=== PATIENT | male | born 1965 | race African-American/Black ===

== ENCOUNTER → 2020-12-10 15:27 | Outpatient (CLI) | payer MEDICARE, BC, SELFPAY ==
--- NOTE | ~2020-12-10 | US_ITS ---
EXAMINATION: US thyroid DATE: 12/10/2020 15:52 INDICATION: Enlarged thyroid. Localized swelling in the neck. TECHNIQUE: Multiple ultrasound images of the thyroid were obtained. COMPARISON: None. FINDINGS: The right thyroid lobe measures 5.8 x 2.5 x 2.3 cm. The left thyroid lobe measures 6.8 x 3.0 x 2.8 c m. There are multiple solid hypoechoic nodules with smooth margins in both the left and right thyroi d lobes. The largest at the inferior left thyroid lobe is taller than wide (TI-RADS 5, highly suspici ous , FNA if >=1.0 cm, annual followup is >0.5 cm) measuring 2.9 cm in maximal diameter. There is a s econd TI RADS 5 solid than wide 1.9 cm nodule in the right thyroid. The remainder are wider than tall (TI-RADS 4, moderately suspicious , FNA if >=1.5 cm, annual followup is >=1 cm) measuring 2.8 cm th e left thyroid lobe, 1.5 cm the isthmus and 1.4 cm and 1.2 cm in the right thyroid lobe. IMPRESSION: 1. Multinodular goiter. Would recommend ultrasound-guided biopsy of the 2 taller than wide TI-RADS 5 nodules which measure 2.9 cm and the left thyroid lobe and 1.9 cm the right thyroid lobe. Reviewed, dictated and finalized at location A. IMPRESSION: 1. Multinodular goiter. Would recommend ultrasound-guided biopsy of the 2 talle r than wide TI-RADS 5 nodules which measure 2.9 cm and the left thyroid lobe an d 1.9 cm the right thyroid lobe.
== END ==
PROVIDERS: PCP Physician Assistant; Visit Provider Physician Assistant
DX: E04.2 Nontoxic multinodular goiter (principal)
CPT/HCPCS: 76536

== ENCOUNTER 2021-01-04 13:36 | Outpatient (CLI) | payer MEDICARE, BC, SELFPAY ==
--- NOTE | ~2021-01-04 | US_ITS ---
EXAMINATION: 1. US FNA additional 2. US FNA w image guidance DATE: 01/04/2021 14:48 INDICATION: Nontoxic multinodular goiter. TECHNIQUE: The procedure and its benefits and risks were discussed with the patient. Risks specifically discusse d included bleeding. The patient verbalized understanding of the risks and agreed to proceed. The nec k was prepped and draped in the usual sterile manner. 1% lidocaine was used for local anesthesia. 5 passes were made with a 25G needle into the lesion in right thyroid lobe under ultrasound guidance. 5 passes were made with a 25-gauge needle into the lesion in left thyroid lobe. There were no immedia te complications. The patient understood to call the ordering physician for results after a week and a half and verbalized that understanding. FINDINGS: Grayscale ultrasound images demonstrate needles advanced into a 1.9 cm nodule in right thyroid lobe f or biopsy. Recent ultrasound images demonstrate needles advanced into a 2.9 cm nodule in left thyroid lobe. IMPRESSION: 1. Ultrasound-guided fine needle aspiration of a right thyroid nodule. 2. Ultrasound-guided fine-needle aspiration of a left thyroid nodule. Reviewed, dictated and finalized at location A. IMPRESSION: 1. Ultrasound-guided fine needle aspiration of a right thyroid nodule. 2. Ultrasound-guided fine-needle aspiration of a left thyroid nodule.
== END 2021-01-04 13:37 | disposition home or self-care (01) ==
PROVIDERS: PCP Physician Assistant; Visit Provider Otolaryngology
DX: E04.2 Nontoxic multinodular goiter (principal)
CPT/HCPCS: 10005; 10006; 88173; 88305

== ENCOUNTER 2022-08-14 02:32 | Day surgery (SDC) | payer MEDICARE, BC, SELFPAY ==
[2022-08-02 12:07] VITALS: BMI 28.0
[2022-08-14 07:13] VITALS: BMI 27.7
[2022-08-14 07:15] VITALS: BP 126/84; PULSE 64; RESP 16; TEMP 35.9; O2SAT 99
[2022-08-14] MEDS: LACTATED RINGERS 1,000 ML 150 ML IV CONT (07:34)
[2022-08-14 07:37] LABS: Glucose Point of Care 123 mg/dl (65-105)
--- NOTE | 2022-08-14 08:00 | P.HP_ITS ---
H&P: HPI History of Present Illness Date/Time: 08/14/22 08:00 Chief Complaint: Neoplasia screening. Narrative: This is a 57-year-old male patient presents for screening colonoscopy. Patient's current weight appetite and bowel movements are normal. Patient denies abdominal pain. He has had no bleeding. Family history is noncontributory. Previous exam 5 years ago was unremarkable. Review of Systems Review of Systems: Review of systems noncontributory. [facility] Past Medical History Medical History BMI 28.0-28.9,adult Diabetes Hemoglobin A1c less than 7.0% 6.8 per pt, drawn approx 03/28/2020 Family History Family History Mother Family history of diabetes mellitus in first degree relative Heart disease Kidney disease Social History Social History Smoking status: Never smoker Alcohol intake: never Alcohol use details: occasional Living arrangements: with family Spiritual care concerns: No Meds Home Medications and Allergies Home Medications Medication Instructions Recorded Confirmed Type empagliflozin 10 mg-linagliptin 5 1 tablet PO DAILY 04/07/20 08/14/22 History mg tablet (Glyxambi) Allergies Allergy/AdvReac Type Severity Reaction Status Date / Time acetaminophen Allergy Intermediate Hives Verified 08/14/22 07:12 Penicillins Allergy Unknown Unknown Verified 08/14/22 07:12 Vital Signs Vital Signs - 24 hr 08/14/22 07:15 Temperature 96.7 F L Pulse Rate 64 Respiratory Rate 16 Blood Pressure 126/84 Pulse Oximetry 99 Oxygen Delivery Room Air Exam Narrative: Physical exam reveals patient to be alert. Vital signs stable. HEENT exam is unremarkable. Patient is anicteric. Lungs are clear to auscultation and percussion. Heart is without murmur or extra sounds. Abdomen bowel sounds are present soft nontender with no organomegaly. Digital external rectal exam is normal. Assessment and Plan Assessment and plan (1) Encounter for screening colonoscopy: Code(s): Z12.11 - Encounter for screening for malignant neoplasm of colon Status: Acute Assessment and Plan: Patient presents today for screening colonoscopy. He appears to be at average risk for colon polyps. Further recommendations may be given after endoscopy.
--- NOTE | 2022-08-14 08:07 | WPDANESEPPF ---
Anes - Initial Pre Proc Eval Procedure: Operation Date: 08/14/22 08:30 Proposed Procedures p Screening Colonoscopy - Ruddy Hercules MD Date/Time: 08/14/22 08:07 Surgeon: Ruddy Hercules MD Pre Op Diagnosis: Neoplasm Screening Patient Data Age: 57 Gender: M Height: 1.83 m Weight: 92.7 kg Last Vital Signs Temp 96.7 F L 08/14/22 07:15 Pulse 64 08/14/22 07:15 Resp 16 08/14/22 07:15 BP 126/84 08/14/22 07:15 Pulse Ox 99 08/14/22 07:15 O2 Del Method Room Air 08/14/22 07:15 Allergies Allergy/AdvReac Type Severity Reaction Status Date / Time acetaminophen Allergy Intermediate Hives Verified 08/14/22 07:12 Penicillins Allergy Unknown Unknown Verified 08/14/22 07:12 Home Medications Medication Instructions Recorded Confirmed Type empagliflozin 10 mg-linagliptin 5 1 tablet PO DAILY 04/07/20 08/14/22 History mg tablet (Glyxambi) Laboratory Tests 08/14/22 07:30 POC Capillary Glucose 123 mg/dl H mg/dl (65-105) Patient hx anesthesia problems: none Family hx anesthesia problems: none Results Review: All pre-operative results and documents have been reviewed as part of the pre-operative evaluation. [facility] Past Medical History Medical History BMI 28.0-28.9,adult Diabetes Hemoglobin A1c less than 7.0% 6.8 per pt, drawn approx 03/28/2020 Family History Family History Mother Family history of diabetes mellitus in first degree relative Heart disease Kidney disease Social History Social History Smoking status: Never smoker Alcohol intake: never Alcohol use details: occasional Living arrangements: with family Spiritual care concerns: No Anes - Eval Final PreProcedure Day of Procedure 08/14/22 08:07 Patient weight: normal Heart: regular rate and rhythm Lungs: clear to auscultation Airway: Mallampati scale class II Neurological: alert and oriented Last oral intake: >/= 8 hours ASA classification: II Emergent: no Anesthetic plan: proceed Anesthesia type and monitoring: general GIVS and standard monitoring Results Review: All pre-operative results and documents have been reviewed as part of the pre-operative evaluation. Informed Consent: The patient's anesthetic plan and its attendant risks and benefits were discussed with the patient/family/POA. Questions were solicited and answers provided to the satisfaction of the patient/family/POA.
[2022-08-14 08:45] VITALS: BP 105/71; PULSE 77; RESP 29; O2SAT 99
[2022-08-14 08:55] VITALS: BP 105/73; PULSE 66; RESP 18; O2SAT 99
[2022-08-14 09:05] VITALS: BP 114/72; PULSE 69; RESP 18; O2SAT 100
== END 2022-08-14 09:18 | disposition home or self-care (01) ==
PROVIDERS: PCP Physician Assistant; Visit Provider Internal Medicine Gastroenterology
PROC: 0DJD8ZZ Inspection of Lower Intestinal Tract, Via Natural or Artificial Opening Endoscopic (ICD-10-PCS; CPT 45378; principal; 2022-08-14 08:30)
DX: Z12.11 Encounter for screening for malignant neoplasm of colon (principal); K64.8 Other hemorrhoids; E11.9 Type 2 diabetes mellitus without complications; Z79.84 Long term (current) use of oral hypoglycemic drugs
CPT/HCPCS: G0121; 82948; J7120

== ENCOUNTER 2024-12-09 08:02 | Outpatient (RCR) | payer MEDICARE, BC, SELFPAY ==
[2024-12-09 08:27] VITALS: BMI 26.2
--- NOTE | 2024-12-09 10:32 | PCDIET ---
MNT Consult completed. See [id number] -> Nurse/Allied Health -> Nutrition.
== END 2025-02-23 09:12 | disposition home or self-care (01) ==
LOC: ANHDMC 08:02
PROVIDERS: PCP Nurse Practitioner Family; Visit Provider Family Medicine
DX: E11.65 Type 2 diabetes mellitus with hyperglycemia (principal); Z71.3 Dietary counseling and surveillance
CPT/HCPCS: 97803